=== PATIENT | male | born 1945 | race Caucasian/White ===

== ENCOUNTER 2020-11-12 15:55 | Inpatient (IN) | payer MEDICARE ==
[~2020-11-12] VITALS: Ht 180.3 cm; Wt 65.5 kg
[~2020-11-12 15:55] MED LIST: ALBUTEROL2.5 MG/3 M INH; AMOX TR-K CLV1 EAC3 GT; ASPIRIN 325MG325 MG GT; ASPIRIN81 MG PO; ATORVASTATIN CA20 MG PO; AUGMENTIN 875-1 EACH GT; AUGMENTIN 875-1 EACH PO; AUGMENTIN250 MG/5 M PO; BACTROBAN OINT22 GM EXT; CALMOSEPTINE OI71 GM TP; CELEXA20 MG GT; CLARITIN10 MG GT; DANTRIUM GT; DOXYCYCLINE HY100 MG PO; EEG; ELIQUIS5 MG GT; FLAGYL500 MG PO; FLOMAX 0.4 MG0.4 MG PO; FLORASTOR250 MG GT; GENTAMICIN 0.3% OD; IMODIUM CAP 2 MG2 MG GT; IPRAT-ALBUT 0.5-3 ML INH; JEVITY 1.5 CA1500 ML GT; KEPPRA 100100 MG/1 M PO; LEVAQUIN500 MG PEG; LEVAQUIN750 MG PO; LEVOFLOXACIN500 MG PO; LIPITOR80 MG PO; LOPRESSOR 25 MG25 MG GT; LOTRISONE CREAM15 GM TP; MEDROL4 MG PO; MYCOSTATIN100000 UTS GT; MYCOSTATIN100000 UTS PO; OMEPRAZOLE20 MG GT; OMNICEF 300 MG300 MG GT; OMNICEF 300 MG300 MG PO; PERFOROMIS20 MCG/2 M INH; PERFOROMIS20 MCG/21 INH; PERIDEX15 ML PO; PREDNISONE 5 MG5 MG GT; PREDNISONE10 MG GT; PULMICORT0.5 MG/2 M INH; PULMICORT0.5 MG/21 INH; ROCEPHIN IM/IV500 MG IM; TYLENOL 325MG325 MG GT; TYLENOL 325MG325 MG PO; ULTRACET TABLE1 EACH GT; VIBRAMYCIN100 MG PO; VITAMIN D 11000 UNIT PO; VITAMIN D2 GT; ZANTAC 150 MG150 MG GT; ZITHROMAX250 MG PO; ZOFRAN4 MG PO; ZOSYN 2.25 GR2.25 GM IV
[2020-11-12 17:52] LABS: HEMOGLOBIN 12.4 gm/dl (14.0-17.5); RED BLOOD COUNT 3.55 M/UL (4.20-5.50); WHITE BLOOD COUNT 4.3 K/UL (4.5-11.0)
[2020-11-12 18:12] LABS: BUN/CREATININE RATIO 27 (0-10)
[2020-11-13] MEDS ORDERED: FERROUS SU220 MG/5 M GT (01:33)
--- NOTE | 2020-11-13 12:53 | NUR ---
11/13/20 1100 ASSUMED CARE OF PATIENT AFTER BEING TRANSEFERED TO ROOM 4121. AGREE WTIH PREVIOUS ASSESSMENT. JEVITY 1.5 RESUMED AT 50 ML/HR O2 AT 2.5 L/NC CONTINUED. AT BEDSIDE AND BELONGINGS BROUGHT WITH PATIENT
[2020-11-14 06:36] LABS: HEMOGLOBIN 11.8 gm/dl (14.0-17.5); RED BLOOD COUNT 3.38 M/UL (4.20-5.50)
[2020-11-14 06:38] LABS: WHITE BLOOD COUNT 7.2 K/UL (4.5-11.0)
[2020-11-14 07:09] LABS: BUN/CREATININE RATIO 50 (0-10)
[2020-11-15 05:58] LABS: HEMOGLOBIN 11.6 gm/dl (14.0-17.5); RED BLOOD COUNT 3.34 M/UL (4.20-5.50); WHITE BLOOD COUNT 6.8 K/UL (4.5-11.0)
[2020-11-15 06:15] LABS: BUN/CREATININE RATIO 49 (0-10)
[2020-11-16 04:56] LABS: RED BLOOD COUNT 3.49 M/UL (4.20-5.50); WHITE BLOOD COUNT 5.9 K/UL (4.5-11.0)
[2020-11-16 05:13] LABS: BUN/CREATININE RATIO 54 (0-10)
[2020-11-17 05:46] LABS: HEMOGLOBIN 12.7 gm/dl (14.0-17.5); RED BLOOD COUNT 3.65 M/UL (4.20-5.50); WHITE BLOOD COUNT 6.1 K/UL (4.5-11.0)
[2020-11-17 06:14] LABS: BUN/CREATININE RATIO 50 (0-10)
--- NOTE | 2020-11-17 18:05 | NUR ---
PATIENTS PEG TUBE NTOED TO BE LEAKING WITH A FIRM ABDOMEN THAT IS TENDER. PROVIDER MADE AWARE WITH NEW ORDRES GIVEN. TUBE FEEDING HELD AT THIS TIME.
[2020-11-18 04:08] LABS: HEMOGLOBIN 13.1 gm/dl (14.0-17.5); RED BLOOD COUNT 3.79 M/UL (4.20-5.50); WHITE BLOOD COUNT 6.4 K/UL (4.5-11.0)
[2020-11-18 04:29] LABS: BUN/CREATININE RATIO 44 (0-10)
== END 2020-11-18 17:30 | disposition home or self-care (01) | DRG 189 ==
LOC: ER1 15:55 → MED SURG 4 21:56 → CDU 21:56 → M/S 21:56 → MED SURG 4 11-13 10:09
PROVIDERS: Internal Medicine; Physician Assistant; ADMIT Internal Medicine
PROC: 5A09457 Assistance with Respiratory Ventilation, 24-96 Consecutive Hours, Continuous Positive Airway Pressure (ICD-10-PCS; principal; 2020-11-15)
DX: J96.21 Acute and chronic respiratory failure with hypoxia (principal); I69.351 Hemiplegia and hemiparesis following cerebral infarction affecting right dominant side; K94.23 Gastrostomy malfunction; E87.2 Acidosis; E87.1 Hypo-osmolality and hyponatremia; J43.9 Emphysema, unspecified; G40.909 Epilepsy, unspecified, not intractable, without status epilepticus; I71.4 Abdominal aortic aneurysm, without rupture; Z20.822 Contact with and (suspected) exposure to COVID-19; E78.5 Hyperlipidemia, unspecified; E87.70 Fluid overload, unspecified; K21.9 Gastro-esophageal reflux disease without esophagitis; F41.9 Anxiety disorder, unspecified; E55.9 Vitamin D deficiency, unspecified; I48.0 Paroxysmal atrial fibrillation; R13.10 Dysphagia, unspecified; R13.0 Aphagia; D64.9 Anemia, unspecified; Y83.8 Other surgical procedures as the cause of abnormal reaction of the patient, or of later complication, without mention of misadventure at the time of the procedure; Z99.81 Dependence on supplemental oxygen; Z79.01 Long term (current) use of anticoagulants; Z87.891 Personal history of nicotine dependence; Z88.5 Allergy status to narcotic agent; Z82.49 Family history of ischemic heart disease and other diseases of the circulatory system; Z83.6 Family history of other diseases of the respiratory system; Z79.82 Long term (current) use of aspirin; Z74.01 Bed confinement status; I69.320 Aphasia following cerebral infarction; I69.391 Dysphagia following cerebral infarction
CPT/HCPCS: 36415; 36600; 43762; 71045; 74018; 74019; 80048; 80053; 82550; 82553; 82803; 83735; 83874; 83880; 84484; 85025; 85027; 85379; 86140; 93005; 93970; 94640; 94660; 94664; 94760; 96374; 96375; 96376; 99285; G0378; J1940; J2920; J2930; Q9963; Q9967; U0002

== ENCOUNTER 2020-11-19 | Emergency (ER) | payer MEDICARE ==
[~2020-11-19] MED LIST changes: +FERROUS SU220 MG/5 M GT
== END 2020-11-19 10:15 | disposition home or self-care (01) ==
LOC: ER1
DX: K94.23 Gastrostomy malfunction (principal); Z88.5 Allergy status to narcotic agent; Z87.891 Personal history of nicotine dependence
CPT/HCPCS: 43762; 74018; 99283; Q9963

== ENCOUNTER 2021-03-20 18:10 | Emergency (ER) | payer MEDICARE ==
[2021-03-20 19:32] LABS: HEMOGLOBIN 12.7 gm/dl (14.0-17.5); RED BLOOD COUNT 3.64 M/UL (4.20-5.50); WHITE BLOOD COUNT 4.4 K/UL (4.5-11.0)
[2021-03-20 19:52] LABS: BUN/CREATININE RATIO 27 (0-10)
[2021-03-20] MEDS ORDERED: CEFDINIR250 MG/5 M GT (23:45)
== END 2021-03-21 00:45 | disposition home or self-care (01) ==
LOC: ER1 18:10
PROVIDERS: Physician Assistant
DX: N20.2 Calculus of kidney with calculus of ureter (principal); N21.0 Calculus in bladder; R31.9 Hematuria, unspecified; Z86.73 Personal history of transient ischemic attack (TIA), and cerebral infarction without residual deficits; Z88.5 Allergy status to narcotic agent
CPT/HCPCS: 80053; 81001; 83605; 83690; 85025; 85652; 86140; 87086; 99284; Q9967

== ENCOUNTER 2021-04-25 01:53 | Inpatient (IN) | payer MEDICARE ==
[~2021-04-25] VITALS: Ht 180.3 cm; Wt 61.2 kg
[~2021-04-25 01:53] MED LIST changes: +CEFDINIR250 MG/5 M GT; -MYCOSTATIN100000 UTS PO
[2021-04-25 03:03] LABS: HEMOGLOBIN 12.1 gm/dl (14.0-17.5); RED BLOOD COUNT 3.44 M/UL (4.20-5.50)
[2021-04-25 03:40] LABS: BUN/CREATININE RATIO 34 (0-10)
[2021-04-25] MEDS ORDERED: AUGMENTIN 875-1 EACH PEG (05:48)
[2021-04-25] MEDS ORDERED: ZOFRAN ODT 4 MG4 MG PEG (06:25)
[2021-04-25] MEDS ORDERED: ASPIRIN81 MG GT (12:10)
[2021-04-25] MEDS ORDERED: ATORVASTATIN CA40 MG GT (12:11)
[2021-04-25] MEDS ORDERED: LEVETIRACE100 MG/1 M GT ×2 (12:15)
[2021-04-25] MEDS ORDERED: ZOFRAN ODT 4 MG4 MG GT (12:18)
[2021-04-25] MEDS ORDERED: FLOMAX 0.4 MG0.4 MG GT (12:19)
[2021-04-26 06:58] LABS: HEMOGLOBIN 11.2 gm/dl (14.0-17.5); RED BLOOD COUNT 3.21 M/UL (4.20-5.50); WHITE BLOOD COUNT 4.4 K/UL (4.5-11.0)
[2021-04-26 07:44] LABS: BUN/CREATININE RATIO 29 (0-10)
[2021-04-27 07:03] LABS: HEMOGLOBIN 11.5 gm/dl (14.0-17.5); RED BLOOD COUNT 3.31 M/UL (4.20-5.50); WHITE BLOOD COUNT 3.6 K/UL (4.5-11.0)
[2021-04-27 07:38] LABS: BUN/CREATININE RATIO 25 (0-10)
[2021-04-29 07:36] LABS: HEMOGLOBIN 11.6 gm/dl (14.0-17.5); RED BLOOD COUNT 3.37 M/UL (4.20-5.50)
[2021-04-29 07:37] LABS: WHITE BLOOD COUNT 4.9 K/UL (4.5-11.0)
[2021-04-29 08:29] LABS: BUN/CREATININE RATIO 27 (0-10)
[2021-04-29] MEDS ORDERED: LEVALBUTER1.25 MG/3 NEB (11:05)
[2021-04-29] MEDS ORDERED: POLYETHYLENE GL17 GM GT (11:05)
[2021-04-29] MEDS ORDERED: CARDIZEM 60MG T60 MG PEG (11:05)
== END 2021-04-29 15:06 | disposition home or self-care (01) | DRG 394 ==
LOC: ER1 01:53 → CDU 11:24 → MED SURG 4 11:24
PROVIDERS: Family Medicine; Physician Assistant Medical; ADMIT Internal Medicine Infectious Disease
DX: K94.23 Gastrostomy malfunction (principal); I48.20 Chronic atrial fibrillation, unspecified; J96.11 Chronic respiratory failure with hypoxia; J96.12 Chronic respiratory failure with hypercapnia; I69.351 Hemiplegia and hemiparesis following cerebral infarction affecting right dominant side; R47.01 Aphasia; J98.11 Atelectasis; Z20.822 Contact with and (suspected) exposure to COVID-19; G40.909 Epilepsy, unspecified, not intractable, without status epilepticus; K21.00 Gastro-esophageal reflux disease with esophagitis, without bleeding; F41.9 Anxiety disorder, unspecified; E55.9 Vitamin D deficiency, unspecified; N20.0 Calculus of kidney; I48.0 Paroxysmal atrial fibrillation; I71.4 Abdominal aortic aneurysm, without rupture; J44.9 Chronic obstructive pulmonary disease, unspecified; R13.10 Dysphagia, unspecified; K56.41 Fecal impaction; I69.320 Aphasia following cerebral infarction; Z87.891 Personal history of nicotine dependence; Z82.49 Family history of ischemic heart disease and other diseases of the circulatory system; Z88.5 Allergy status to narcotic agent; Z79.82 Long term (current) use of aspirin; Z79.52 Long term (current) use of systemic steroids; Z79.899 Other long term (current) drug therapy
CPT/HCPCS: 36415; 36600; 70450; 71045; 71250; 74018; 80048; 80053; 81001; 82803; 83605; 83735; 83880; 84100; 85025; 85027; 87040; 87086; 93005; 94640; 94760; 96374; 96375; 99285; G0378; J0295; J1160; J2405; J2543; J7030; Q9963; Q9967; U0002